=== PATIENT | male | born 1945 | race Caucasian/White ===

== ENCOUNTER 2020-02-28 08:43 | Outpatient (RCR) | payer MEDICARE, MEDICAID, SELFPAY | END 2020-05-23 15:24 | disposition home or self-care (01) | LOC: HO.WCC 08:43 | PROVIDERS: PCP Internal Medicine; Visit Provider Surgery | DX: L89.324 Pressure ulcer of left buttock, stage 4 (principal); G35 Multiple sclerosis; I10 Essential (primary) hypertension; Z74.01 Bed confinement status | CPT/HCPCS: 11042; 97605; 99212; 99213 ==

== ENCOUNTER 2020-11-12 16:15 | Outpatient (REF) | payer MEDICARE, MEDICAID, SELFPAY ==
[2020-11-12 16:32] LABS: Glucose Urine UA NEG (NEG); Leukocyte Esterase Urine 3+ (NEG); Nitrite Urine POS (NEG); PH 6.5 (5.0-8.0); UACC Culture Trigger YES; Urine Blood 1+ (NEG); Urine Ketones NEG (NEG); Urine Protein TRACE MG/DL (NEG-TRACE)
[2020-11-12 16:36] LABS: Appearance Urine CLOUDY; Color Urine YELLOW
[2020-11-12 16:42] LABS: Bacteria Urine 4+ /LPF; WBC Urine TNTC /HPF (0-4)
== END 2020-11-12 16:16 | disposition home or self-care (01) ==
LOC: HO.LNP 16:15
PROVIDERS: Visit Provider Urology
DX: R10.9 Unspecified abdominal pain (principal); Z87.440 Personal history of urinary (tract) infections
CPT/HCPCS: 81001; 81003; 87086

== ENCOUNTER 2021-01-31 13:10 | Outpatient (RCR) | payer MEDICARE, MEDICAID, SELFPAY | END 2021-02-14 12:14 | disposition home or self-care (01) | LOC: HO.WCC 13:10 | PROVIDERS: PCP Internal Medicine; Visit Provider Physician Assistant | DX: L89.894 Pressure ulcer of other site, stage 4 (principal); G35 Multiple sclerosis; I10 Essential (primary) hypertension | CPT/HCPCS: 11044 ==

== ENCOUNTER 2021-02-02 00:31 | Emergency (ER) | payer MEDICARE, MEDICAID, SELFPAY ==
--- NOTE | ~2021-02-02 | XR_ITS ---
EXAMINATION: XR FOOT, RIGHT CLINICAL INFORMATION: Erythema without fluctuance COMPARISON: 10.18.2016 TECHNIQUE: AP, lateral, and oblique views of the right foot. FINDINGS: No acute fracture or dislocation. Diffuse osseous demineralization. Degenerative changes of the first metatarsophalangeal joint. Talar beak present. There is soft tissue ulceration lateral to the base of the fifth metatarsal. No underlying periosteal reaction to suggest osteomyelitis. XR/XR foot RT 2V IMPRESSION: No radiographic evidence of osteomyelitis. Ulceration of the soft tissues lateral to the fifth metatarsal base.
[2021-02-02 00:51] VITALS: BP 131/68; BP 136/67; PULSE 86; PULSE 88; RESP 15; TEMP 36.8; O2SAT 95; O2SAT 97; BMI 24.4
--- NOTE | 2021-02-02 01:19 | PC.NURSE ---
This RN with [facility] changed pt from home clothing into hospital gown. EMS linens removed. Pt with chronic madden draining appropriately. This RN notes three dressings to back along spine. This RN removes dressings. Wound on upper back appears to be stage 1, wound to mid back appears to be stage 2 and wound to low back appears to be stage 3 with moderate amount of purulent drainage. Pt also with pressure wound to lateral aspect of R foot. This RN repositioned pt with pillows under pt, under legs, in between knees and under lower legs to float feet off of stretcher. Plan to photo/measure/document wounds, line/labs, leave wounds open to air for provider eval, then dress wounds. Stretcher low locked, rails raised, call machuca within reach. Pt with fall alert bracelet on wrist. No socks 2/2 wound. Fall sign posted outside of room.
--- NOTE | 2021-02-02 01:47 | PC.NURSE ---
This RN unable to photograph pt's wounds as camera is not working. This RN asked several coworkers for assistance including Vida GANTrecovery operator but camera remains unable to be used. This RN to measure and document wounds.
[2021-02-02 02:15] VITALS: BP 153/78; PULSE 90; RESP 19; O2SAT 97
[2021-02-02 02:22] LABS: MANUAL DIFF FLAG NO
[2021-02-02 02:25] LABS: Basophils Absolute Auto 0.1 X10*3/uL (0.0-0.2); Basophils Percent Auto 0.5 % (0-2); Eosinophils Absolute Auto 0.4 X10*3/uL (0.0-0.4); Eosinophils Percent Auto 3.5 % (0-4); Hematocrit 32.8 % (42-52); Hemoglobin 10.9 g/dl (14.0-18.0); Imm Gran Abs Auto 0.02 X10*3/uL (0.00-0.03); Imm Gran Pct Auto 0.2 % (0.0-0.4); Lymphocytes Absolute Auto 1.3 X10*3/uL (1.2-4.9); Lymphocytes Percent Auto 11.9 % (20-40); Mean Corpuscular HGB Conc 33.2 g/dl (31.0-36.0); Mean Corpuscular Hemoglobin 29.9 pg (27.0-33.0); Mean Corpuscular Volume 90.1 fL (80-98); Mean Platelet Volume 8.8 fL (9.4-12.4); Monocytes Absolute Auto 1.4 X10*3/uL (0.1-1.2); Neutrophils Absolute Auto 7.6 X10*3/uL (2.0-8.3); Neutrophils Percent Auto 70.9 % (45-73); Platelet Count 414 X10*3/uL (160-400); Red Blood Count 3.64 X10*6/uL (4.60-5.80); Red Cell Distribution Width 14.4 % (11.0-16.0); White Blood Count 10.7 X10*3/uL (4.8-10.8)
[2021-02-02 02:37] LABS: Alanine Aminotransferase 9 U/L (0-40); Albumin Level 3.3 g/dL (3.5-5.0); Alkaline Phosphatase 109 U/L (39-117); Anion Gap 12 (12-20); Aspartate Amino Transferase 17 U/L (5-37); Bilirubin Total < 0.2 mg/dL (0.0-1.0); Blood Urea Nitrogen 13 mg/dL (9-16); Calcium 8.5 mg/dL (8.4-10.2); Carbon Dioxide 27 mmol/L (22-29); Chloride 100 mmol/L (96-108); Creatinine Clr Calc Pharmacy 111.3; Estimated Glomerular Filt Rate > 60; Glucose Random 101 mg/dL (60-115); Sodium 136 mmol/L (135-145); Total Protein 6.7 g/dL (6.5-8.0)
--- NOTE | 2021-02-02 02:38 | ED_ITS ---
HPI - General Adult General Chief complaint: Wound/Laceration Stated complaint: Bed sores Time Seen by Provider: 02/02/21 02:33 Source: patient Mode of arrival: EMS History of Present Illness HPI narrative: 75-year-old male with history of MS arrives via EMS from home with complaints of pain to the right foot in upper back. Patient states he is [facility] and was recently seen. He denies any fevers or chills but states that he is concerned about the pressure ulcers and wished to be evaluated. Related Data Home Medications Medication Instructions Recorded Confirmed amlodipine 5 mg tablet 1 tab PO DAILY 02/02/21 02/02/21 diazepam 10 mg tablet 1 tab PO TID 02/02/21 02/02/21 metoprolol tartrate 25 mg tablet 1 tab PO BID 02/02/21 02/02/21 pravastatin 80 mg tablet 1 tab PO DAILY 02/02/21 02/02/21 sertraline 50 mg tablet 1 tab PO DAILY 02/02/21 02/02/21 Allergies Allergy/AdvReac Type Severity Reaction Status Date / Time No Known Allergies Allergy Verified 02/02/21 00:57 Review of Systems Review of Systems: Pertinent positives and negatives as stated in HPI 10 point review of systems is otherwise negative. PMFSH Past Medical History Source: nursing notes reviewed Social History Social History Advance Directives: No Physical Exam Vital Signs: Vital Signs: Last Vital Signs Temp 98.2 F 02/02/21 00:51 Pulse 88 02/02/21 03:12 Resp 17 02/02/21 03:12 BP 158/83 H 02/02/21 03:12 Pulse Ox 96 02/02/21 03:12 Body Mass Index 24.4 VITAL SIGNS: Reviewed. GENERAL: Well developed, well nourished, in no acute distress. HEAD: Normocephalic/atraumatic EYES: PERRLA, EOMI OROPHARYNX: no oral lesions noted, posterior pharynx clear LUNGS: Normal breath sounds, but decreased bilaterally in the bases SpO2<97> CARDIOVASCULAR: Regular rate and rhythm without noted murmurs, no JVD or lower extremity edema. ABDOMEN: Soft, non-tender, non-distended with bowel sounds. BACK: Stage III pressure ulcer with surrounding erythema and skin changes consistent with well taking care of wound with evidence of granulation RIGHT FOOT: There is a small area of erythema without induration or fluctuance and no warmth to touch, capillary refill less than 3 seconds SKIN: Inspection of the skin reveals no rashes NEUROLOGIC: Alert and oriented x 4. Strength and sensation to light touch were grossly intact x 4, patient in somewhat contracted positioning at baseline secondary to MS Course Course Course Narrative: This is a 75-year-old male with history and clinical presentation consistent with well-appearing pressure wounds to the right midfoot and upper back. There is no evidence of local or systemic infection, however will obtain basic labs as well as x-ray of right foot. Review of all investigations negative for acute findings and pressure wound to the foot as well as to lower back appear to be well cared for. Patient was noted to be mildly low potassium level and was repleted with 60 mEq. Discussed with him at bedside and he was encouraged to follow up with the wound care center on Wednesday morning for re-evaluation of his pressure ulcers. Medical Decision Making Lab Data Result diagrams: 02/02/21 02:13 02/02/21 02:13 Labs: Lab Results 02/02/21 02/02/21 Range/Units 02:13 02:13 WBC 10.7 (4.8-10.8) X10*3/uL RBC 3.64 L (4.60-5.80) X10*6/uL Hgb 10.9 L (14.0-18.0) g/dl Hct 32.8 L (42-52) % MCV 90.1 (80-98) fL MCH 29.9 (27.0-33.0) pg MCHC 33.2 (31.0-36.0) g/dl RDW 14.4 (11.0-16.0) % Plt Count 414 H (160-400) X10*3/uL MPV 8.8 L (9.4-12.4) fL Immature Gran % (Auto) 0.2 (0.0-0.4) % Neut % (Auto) 70.9 (45-73) % Lymph % (Auto) 11.9 L (20-40) % Holmes % (Auto) 13.0 H (2-11) % Eos % (Auto) 3.5 (0-4) % Baso % (Auto) 0.5 (0-2) % Lymph # (Auto) 1.3 (1.2-4.9) X10*3/uL Holmes # (Auto) 1.4 H (0.1-1.2) X10*3/uL Eos # (Auto) 0.4 (0.0-0.4) X10*3/uL Baso # (Auto) 0.1 (0.0-0.2) X10*3/uL Abs Immat Gran (auto) 0.02 (0.00-0.03) X10*3/uL Absolute Neuts (auto) 7.6 (2.0-8.3) X10*3/uL Absolute Nucleated RBC 0.000 (0.0-0.012) X10*3/uL Nucleated RBC % (auto) 0.0 (0.0-0.2) /100WBC Sodium 136 (135-145) mmol/L Potassium 3.0 L (3.3-5.1) mmol/L Chloride 100 (96-108) mmol/L Carbon Dioxide 27 (22-29) mmol/L Anion Gap 12 (12-20) BUN 13 (9-16) mg/dL Creatinine 0.62 (0.5-1.4) mg/dL Estim Creat Clear Calc 111.3 Estimated GFR > 60 Random Glucose 101 (60-115) mg/dL Calcium 8.5 (8.4-10.2) mg/dL Total Bilirubin < 0.2 (0.0-1.0) mg/dL AST 17 (5-37) U/L ALT 9 (0-40) U/L Alkaline Phosphatase 109 (39-117) U/L Total Protein 6.7 (6.5-8.0) g/dL Albumin 3.3 L (3.5-5.0) g/dL Discharge Plan Discharge Clinical Impression: Pressure ulcer of foot, Pressure ulcer of sacral region Patient Disposition: Home, Self-Care Instructions: How to Prevent Pressure Injuries (ED), Chronic Wounds (ED) Additional Instructions: 1. Please resume all home medications as prescribed. 2. Please follow-up with the wound care center on Wednesday for re- evaluation. 3. Please follow-up with your primary care provider on Wednesday for re- evaluation. Return to the ER for acute worsening of your symptoms. Prescriptions: No Action amlodipine 5 mg tablet 1 tab PO DAILY RF: 0 pravastatin 80 mg tablet 1 tab PO DAILY RF: 0 diazepam 10 mg tablet 1 tab PO TID RF: 0 sertraline 50 mg tablet 1 tab PO DAILY RF: 0 metoprolol tartrate 25 mg tablet 1 tab PO BID RF: 0 Referrals: [facility] [Outside] - 2 days (Re-evaluation right foot pressure ulcer as well as sacral decubitus) Physician,Unknown [Primary Care Provider] - 2 days
--- NOTE | 2021-02-02 02:42 | PC.NURSE ---
Due to not being able to use camera, this RN is documenting each identified wound in this note as follows: upper back L of spine: red, blanchable, closed skin area mid back along spine: stage 2 pressure ulcer L: 2.7cm, W: 1.6cm, D: 0.1cm low back along spine: stage 3 pressure ulcer L: 3.8cm, W: 6.4cm, D: 0.1cm R lateral aspect of foot: stage 3 pressure ulcer L: 1.5cm, W: 2.2cm, D: 0.2cm
--- NOTE | 2021-02-02 03:03 | PC.NURSE ---
Pt reporting BARTH, Dr Obrien made aware
[2021-02-02 03:12] VITALS: BP 158/83; PULSE 88; RESP 17; O2SAT 96
[2021-02-02] MEDS: Potassium Chloride ER 20 MEQ TAB.ER.PRT 60 MEQ PO (03:15)
[2021-02-02] MEDS: Acetaminophen 325 MG TABLET 650 MG PO (03:15)
[2021-02-02 04:34] VITALS: BP 168/85; PULSE 72; RESP 15; O2SAT 97
--- NOTE | 2021-02-02 06:34 | PC.NURSE ---
While cleaning pt's room after pt's departure from department by EMS, staff notes pt's madden collection bag still in room hanging from stretcher. This RN calls patient and speaks to him. This RN informs pt that his madden catheter appears to have become disconnected from the drainage bag when EMS performed sheet draw from hospital stretcher to their own. Pt expresses understanding. This RN asks pt if his caregivers are able to replace the collection bag at his home and he says yeah at 10 when they come in. This RN expresses confusion to pt about caregivers' hours as EMS had reported they were present only during the day and not at night, but [place] [facility] [place] stated he had caregivers at home waiting for him and stated they are there around the clock. Pt reiterates, over the phone, that caregiver arrives at 10am. This RN explains to patient that his urine will be draining, causing him to be wet. This RN explains that this is harmful to his skin and wounds and recommends that pt call 911 for ambulance transport to the facility. Pt states he chooses to stay at home and have his caregiver replace the collection bag at home.
== END 2021-02-02 05:54 | disposition home or self-care (01) ==
PROVIDERS: Emergency Provider Student in an Organized Health Care Education/Training Program
DX: L89.610 Pressure ulcer of right heel, unstageable (principal); M79.671 Pain in right foot; Z79.899 Other long term (current) drug therapy
CPT/HCPCS: 36415; 73620; 80053; 85025; 99284